=== PATIENT | female | born 1990 | race Caucasian/White ===

== ENCOUNTER 2019-04-22 06:10 | Inpatient (IN) ==
[2019-04-22] MEDS ORDERED: LACTATED RINGERS 500 ML IV PRN (06:21)
[2019-04-22] MEDS ORDERED: ONDANSETRON 4 MG/2 ML VIAL IV PRN ×2 (06:21→16:41)
[2019-04-22] MEDS ORDERED: LACTATED RINGERS 1,000 ML IV SCH (06:30)
[2019-04-22 06:42] LABS: Basophils % 0.4 % (0.0-0.8); Eosinophils # 0.1 10*3/uL (0.0-0.87); Eosinophils % 0.6 % (0.00-10.9); Hematocrit 38.9 VOL% (35.7-47.0); Hemoglobin 13.1 GM/DL (12.0-16.0); Immature Granulocytes % 0.9 %; Immature Granulocytes Absolute 0.07 #; Mean Corpuscular HGB Conc 33.7 GM/DL (32-36); Mean Corpuscular Volume 95.1 FL (87-102); Mean Platelet Volume 10.4 FL (9.6-12.0); Monocytes % 7.8 % (1.7-12.7); Neutrophils % 64.3 % (38.7-73.9); Platelet Count 149 T/CUMM (130-400); Red Blood Count 4.09 MC/CUMM (3.8-5.5); Red Cell Distribution Width 12.3 % (9.3-17.3); White Blood Count 7.7 T/CUMM (4-12)
[2019-04-22 06:50] LABS: Apearance,Urine CLEAR (Clear); Bacteria,Urine Occasional /HPF (Few); Bilirubin,Urine Negative (Negative); Blood, Urine Negative (Negative); Glucose,Urine (UA) Negative (Negative); Ketones,Urine Negative (Negative); Nitrite,Urine Negative (Negative); Protein,Urine Negative; RBC,Urine 2 /HPF (0-4); Squamous Epithelial Cell,Urine Occasional /HPF (0-10); Urine Color Straw (Yellow); Urine Specific Gravity 1.003 (1.001-1.035); Urine Urobilinogen < 2.0 EU/DL (0.2-1.0); WBC,Urine 1 /HPF (0-6)
[2019-04-22] MEDS ORDERED: OXYTOCIN 10 UNIT/ML VIAL ONE (12:56)
[2019-04-22] MEDS ORDERED: OXYTOCIN/LR 20 UNIT/1,000 ML BAG IV ONE (12:56)
[2019-04-22] MEDS ORDERED: miSOPROStol 200 MCG TABLET ONE (12:56)
[2019-04-22] MEDS ORDERED: METHYLERGONOVINE 0.2 MG/1 ML AMP ONE (13:06)
[2019-04-22] MEDS ORDERED: CARBOPROST TROMETHAMINE 250 MCG/ML AMP IM ONE (13:06)
[2019-04-22] MEDS ORDERED: LIDOCAINE 1% 50 ML VIAL ONE (14:32)
[2019-04-22] MEDS ORDERED: BISACODYL 10 MG SUPP RECTAL PRN (16:41)
[2019-04-22] MEDS ORDERED: MEASLES/MUMPS/RUBELLA VACCINE 0.5 ML VIAL SUBCUT ONE (16:41)
[2019-04-22] MEDS ORDERED: RHO(D) IMMUNE GLOBULIN 300 MCG SYRINGE IM ONE (16:41)
[2019-04-22] MEDS ORDERED: LANOLIN 50% CREAM 0.3 OZ TUBE TOP PRN (16:41)
[2019-04-22] MEDS ORDERED: HYDROCORTISONE 2.5% RECTAL CREAM 30 GM TUBE TOP PRN (16:41)
[2019-04-22] MEDS ORDERED: BENZOCAINE 20%/MENTHOL 0.5% SPRAY 56 GM CAN TOP PRN (16:41)
[2019-04-22] MEDS ORDERED: DIPH/TET/ACEL PERT BOOSTER VACCINE 0.5 ML VIAL IM ONE (16:41)
[2019-04-22] MEDS ORDERED: WITCH HAZEL PADS 100/JAR TOP PRN (16:41)
[2019-04-22] MEDS ORDERED: miSOPROStol 200 MCG TABLET VAG ONE (17:00)
[2019-04-22] MEDS: IBUPROFEN 800 MG TABLET PO PRN (17:50)
[2019-04-22] MEDS: DOCUSATE SODIUM 100 MG CAPSULE PO SCH (20:57)
[2019-04-22] MEDS: ACETAMINOPHEN/CODEINE 300-30 MG TABLET PO PRN (22:20)
[2019-04-23] MEDS: IBUPROFEN 800 MG TABLET PO PRN ×3 (03:14→19:12)
[2019-04-23 04:42] LABS: Basophils # 0.1 10*3/uL (0.0-0.2); Basophils % 0.3 % (0.0-0.8); Eosinophils # 0.1 10*3/uL (0.0-0.87); Eosinophils % 0.6 % (0.00-10.9); Hematocrit 33.8 VOL% (35.7-47.0); Hemoglobin 11.6 GM/DL (12.0-16.0); Immature Granulocytes % 0.9 %; Immature Granulocytes Absolute 0.14 #; Lymphocytes # 2.7 10*3/uL (1.4-4.0); Lymphocytes % 17.3 % (21.3-54.2); Mean Corpuscular HGB Conc 34.3 GM/DL (32-36); Mean Corpuscular Volume 93.6 FL (87-102); Mean Platelet Volume 10.5 FL (9.6-12.0); Monocytes % 8.3 % (1.7-12.7); Neutrophils % 72.6 % (38.7-73.9); Platelet Count 167 T/CUMM (130-400); Red Blood Count 3.61 MC/CUMM (3.8-5.5); Red Cell Distribution Width 12.2 % (9.3-17.3); White Blood Count 15.8 T/CUMM (4-12)
[2019-04-23] MEDS: ACETAMINOPHEN/CODEINE 300-30 MG TABLET PO PRN ×2 (07:58→16:34)
[2019-04-23] MEDS: DOCUSATE SODIUM 100 MG CAPSULE PO SCH ×2 (09:30→20:55)
[2019-04-23 15:51] VITALS: BP 127/80
[2019-04-24] MEDS: IBUPROFEN 800 MG TABLET PO PRN ×3 (00:47→13:46)
[2019-04-24] MEDS: DOCUSATE SODIUM 100 MG CAPSULE PO SCH (08:08)
[2019-04-24] MEDS: ACETAMINOPHEN/CODEINE 300-30 MG TABLET PO PRN (13:46)
[2019-04-24] MEDS ORDERED: RHO(D) IMMUNE GLOBULIN 300 MCG SYRINGE IM ONE (14:30)
== END 2019-04-24 15:00 | disposition home or self-care (01) | DRG 807 ==
LOC: N.LDOUT 06:10 → N.LD 06:11
PROVIDERS: ADMIT Obstetrics & Gynecology; ATTEND Obstetrics & Gynecology

== ENCOUNTER 2021-05-29 23:11 | Inpatient (IN) ==
[2021-05-29] MEDS ORDERED: MEPERIDINE 50 MG/1 ML VIAL IV PRN (23:16)
[2021-05-29] MEDS ORDERED: ONDANSETRON 4 MG/2 ML VIAL IV PRN (23:16)
[2021-05-29] MEDS ORDERED: LACTATED RINGERS 1,000 ML IV SCH (23:30)
[2021-05-29 23:49] LABS: Basophils % 0.2 % (0.0-0.8); Eosinophils % 0.2 % (0.00-10.9); Hematocrit 37.9 VOL% (35.7-47.0); Hemoglobin 12.9 GM/DL (12.0-16.0); Immature Granulocytes % 0.8 %; Lymphocytes # 2.6 10*3/uL (1.4-4.0); Lymphocytes % 21.3 % (21.3-54.2); Mean Corpuscular Volume 94.5 FL (87-102); Mean Platelet Volume 11.2 FL (9.6-12.0); Monocytes % 6.8 % (1.7-12.7); Neutrophils % 70.7 % (38.7-73.9); Platelet Count 162 T/CUMM (130-400); Red Blood Count 4.01 MC/CUMM (3.8-5.5); Red Cell Distribution Width 12.7 % (9.3-17.3); White Blood Count 12.4 T/CUMM (4-12)
[2021-05-29] MEDS ORDERED: METHYLERGONOVINE 0.2 MG/1 ML AMP ONE (23:58)
[2021-05-29] MEDS ORDERED: miSOPROStoL 200 MCG TABLET ONE (23:58)
[2021-05-29] MEDS ORDERED: OXYTOCIN/LR 0 UNIT/0 ML BAG IV ONE (23:58)
[2021-05-29] MEDS ORDERED: TRANEXAMIC ACID 1,000 MG/10 ML VIAL ONE (23:58)
[2021-05-29] MEDS ORDERED: CARBOPROST TROMETHAMINE 250 MCG/ML AMP IM ONE (23:59)
[2021-05-30] MEDS ORDERED: SODIUM CHLORIDE 0.9% 0 ML IV ONE
[2021-05-30] MEDS ORDERED: OXYTOCIN 10 UNIT/ML VIAL ONE (00:02)
[2021-05-30 00:12] LABS: Alanine Aminotransferase 13 U/L (13-56); Albumin 3.1 G/DL (3.4-5.0); Alkaline Phosphatase 172 U/L (45-117); Aspartate Amino Transferase 14 U/L (0-37); Bilirubin,Total < 0.39 MG/DL (0.20-1.00); Blood Urea Nitrogen 8 MG/DL (7-18); Calcium 8.6 MG/DL (8.5-10.1); Carbon Dioxide 20 MMOL/L (21-32); Estimated Glom Filtration Rate 136 ML/MIN; Glucose 94 MG/DL (74-106); Osmolality,Calculated 270.8 MOS/KG (273-304); Potassium 3.7 MMOL/L (3.5-5.1); Sodium 137 MMOL/L (136-145); Total Protein 7.2 G/DL (6.4-8.2)
[2021-05-30] MEDS ORDERED: LIDOCAINE 1% 50 ML VIAL ONE (00:12)
[2021-05-30] MEDS ORDERED: BENZOCAINE 20%/MENTHOL 0.5% SPRAY 56 GM CAN TOP PRN (01:55)
[2021-05-30] MEDS ORDERED: WITCH HAZEL PADS 100/JAR TOP PRN (01:55)
[2021-05-30] MEDS ORDERED: LANOLIN 50% CREAM 0.3 OZ TUBE TOP PRN (01:55)
[2021-05-30] MEDS ORDERED: DIPH/TET/ACEL PERT BOOSTER VACCINE 0.5 ML VIAL IM ONE (01:55)
[2021-05-30] MEDS ORDERED: MEASLES/MUMPS/RUBELLA VACCINE 0.5 ML VIAL SUBCUT ONE (01:55)
[2021-05-30] MEDS ORDERED: HYDROCORTISONE 2.5% RECTAL CREAM 30 GM TUBE TOP PRN (01:55)
[2021-05-30] MEDS ORDERED: BISACODYL 10 MG SUPP RECTAL PRN (01:55)
[2021-05-30] MEDS ORDERED: ONDANSETRON 4 MG/2 ML VIAL IV PRN (01:55)
[2021-05-30 03:53] LABS: Cord Venous Blood HCO3 21.6 MMOL/L; Cord Venous Blood PCO2 47.9 MMHG; Cord Venous Blood PO2 29.9 MMHG
[2021-05-30 04:26] LABS: Basophils % 0.2 % (0.0-0.8); Hematocrit 36.4 VOL% (35.7-47.0); Hemoglobin 12.4 GM/DL (12.0-16.0); Immature Granulocytes % 0.9 %; Immature Granulocytes Absolute 0.17 #; Lymphocytes # 1.5 10*3/uL (1.4-4.0); Mean Corpuscular HGB Conc 34.1 GM/DL (32-36); Mean Platelet Volume 11.3 FL (9.6-12.0); Monocytes % 5.1 % (1.7-12.7); Neutrophils % 85.8 % (38.7-73.9); Platelet Count 171 T/CUMM (130-400); Red Blood Count 3.83 MC/CUMM (3.8-5.5); Red Cell Distribution Width 12.7 % (9.3-17.3); White Blood Count 18.7 T/CUMM (4-12)
[2021-05-30] MEDS: DOCUSATE SODIUM 100 MG CAPSULE PO SCH ×2 (08:49→21:28)
[2021-05-30] MEDS: IBUPROFEN 800 MG TABLET PO PRN ×2 (08:50→16:43)
[2021-05-30] MEDS: traMADol 50 MG TABLET PO PRN ×2 (13:45→20:16)
[2021-05-30] MEDS ORDERED: hydrOXYzine HCL 25 MG/1 ML VIAL IM PRN (21:32)
[2021-05-31] MEDS: IBUPROFEN 800 MG TABLET PO PRN ×2 (01:18→08:58)
[2021-05-31 06:33] LABS: Hematocrit 37.7 VOL% (35.7-47.0); Hemoglobin 12.6 GM/DL (12.0-16.0)
[2021-05-31 08:27] VITALS: BP 111/73
[2021-05-31] MEDS: DOCUSATE SODIUM 100 MG CAPSULE PO SCH (08:58)
== END 2021-05-31 01:15 | disposition home or self-care (01) | DRG 806 ==
LOC: N.LD 23:11 → N.OB 05-30 05:10
PROVIDERS: ADMIT Obstetrics & Gynecology; ATTEND Obstetrics & Gynecology